=== PATIENT | male | born 1990 | race Asian ===

== ENCOUNTER 2017-12-30 09:24 | Emergency (ER) | payer OTHER ==
--- NOTE | 2017-12-30 11:06 | XRAY Report ---
EXAM: LEFT SECOND DIGIT RADIOGRAPHY EXAM DATE: 12/30/2017 10:40 AM. CLINICAL HISTORY: Staple thru index finger. COMPARISON: None. TECHNIQUE: 3 views. FINDINGS: Bones: No acute fracture is identified. No bony lesion. Joints: Normal. No subluxations. Soft Tissues: U shaped metallic structure consistent with a staple is seen with the proximal aspect e xtending through the radial portion of the left second distal phalanx within the soft tissues with th e distal portion which appears to extend through or along the margins of the tuft of the left second distal phalanx. IMPRESSION: 1. No acute fractures identified. 2. U-shaped radiopaque foreign body as described of which the distal portion may extend through or al aubrey the margins of the tuft of the left second distal phalanx. [facility] Referring Provider Line: [phone] SITE ID: [id number]
--- NOTE | 2017-12-30 11:55 | ED Physician Documentation ---
PD HPI UPPER EXT INJURY - Stated complaint Stated Complaint: L FINGER STAPLED - Chief complaint Chief Complaint: Ext Problem - History obtained from History obtained from: Patient - History of Present Illness Location: Left, Finger (index) Type of injury: Foreign body (got staple into finger (from swung staple hammer - so construction type staple, not paper staple).) Where injury occurred: Work Timing - onset: How many hours ago (1), Today Timing - details: Abrupt onset, Still present Worsened by: Palpating Associated symptoms: No: Weakness, Numbness Similar symptoms before: Has not had sx before Recently seen: Not recently seen Review of Systems Neurologic: denies: Focal weakness, Numbness, Near syncope PD PAST MEDICAL HISTORY - Past Medical History Past Medical History: Yes Neuro: None GI: GERD - Past Surgical History Past Surgical History: Yes HEENT: Other - Present Medications Home Medications: Ambulatory Orders Medication Instructions Recorded Confirmed No Known Home Medications [No 12/30/17 12/30/17 Known Home Medications] Omeprazole [PriLOSEC] 0 12/30/17 - Allergies Allergies/Adverse Reactions: Allergies Allergy/AdvReac Type Severity Reaction Status Date / Time No Known Drug Allergies Allergy Verified 12/30/17 09:36 - Social History Does the pt smoke?: No Smoking Status: Never smoker Does the pt drink ETOH?: Yes Does the pt have substance abuse?: No - Immunizations Immunizations are current?: Yes PD ED PE NORMAL - Vitals Vital signs reviewed: Yes - General General: Alert and oriented X 3, No acute distress, Well developed/nourished - Derm Derm: Normal color, Warm and dry - Extremities Extremities: Other (left index finger with construction staple in finger dorsally at nail and just proximal to nail (the 2 legs of the taple). Does not distort palmar side. ) - Neuro Neuro: No motor deficit, No sensory deficit Results - Vitals Vitals: Oxygen O2 Source Room air - Rads (name of study) finger xray Radiology: Prelim report reviewed, EMP read contemporaneously (staple FB noted. no fracture. ) Procedures - FB removal FB location: Subcutaneous (into finger tip through nail) FB removal preparation: Local anesthesia-specify (lido 1% digital block.) Removal method: Foreceps (took a little bit of pull to get it out. Might have been into bone a little or just the friction of coming through the nail.) FB removal aftercare: No complications, Patient tolerated well, Removed successfully PD MEDICAL DECISION MAKING - ED course Complexity details: considered differential, d/w patient Departure - Departure Disposition: 01 Home, Self Care Clinical Impression: Foreign body finger Condition: Stable Record reviewed to determine appropriate education?: Yes Instructions: ED Foreign Body Soft Tissue Removed Follow-Up: DEONTE Day [Provider Group] Comments: Wash the area 2-3 times a day for the next couple of days. Keep it covered with a Band-Aid. Recheck if signs of infection otherwise normal use. Tylenol or ibuprofen if needed for pains. Discharge Date/Time: 12/30/17 12:27
[2017-12-30 12:12] VITALS: BP 140/92
== END 2017-12-30 12:27 | disposition home or self-care (01) ==
LOC: ED 09:24
DX: S60.451A Superficial foreign body of left index finger, initial encounter (principal); W29.8XXA Contact with other powered hand tools and household machinery, initial encounter; Y99.0 Civilian activity done for income or pay
CPT/HCPCS: 10120; 73140; 99282; 99283

== ENCOUNTER 2018-03-12 19:56 | Emergency (ER) | payer OTHER ==
--- NOTE | 2018-03-12 20:36 | ED Physician Documentation ---
PD HPI UPPER EXT INJURY - Stated complaint Stated Complaint: SHOULDER PAIN - Chief complaint Chief Complaint: Ext Problem - History obtained from History obtained from: Patient - History of Present Illness Location: Right, Shoulder Type of injury: Blunt / blow Timing - onset: Enter time (19:00), Today Timing - details: Abrupt onset Improved by: Rest Worsened by: Moving Associated symptoms: No: Weakness, Numbness, Tingling, Swelling Similar symptoms before: Has not had sx before Recently seen: Not recently seen - Additonal information Additional information: playing soccer tonight, approximately 7 PM collided with another player, c/o right shoulder pain. denies other injury Review of Systems Musculoskeletal: reports: Joint pain (right shoulder). denies: Neck pain, Back pain Neurologic: denies: Focal weakness, Numbness, Head injury PD PAST MEDICAL HISTORY - Past Medical History Neuro: Migraines - Present Medications Home Medications: Ambulatory Orders Medication Instructions Recorded Confirmed Cyclobenzaprine [Flexeril] 10 mg PO PRN PRN 03/12/18 Hydrocodone/Acetaminophen 1 - 2 each PO Q6HR PRN #14 tablet 03/12/18 [Hydrocodon-Acetaminophen 5-325] SUMAtriptan succinate [Sumatriptan 50 mg PO DAILY 03/12/18 Succinate] - Allergies Allergies/Adverse Reactions: Allergies Allergy/AdvReac Type Severity Reaction Status Date / Time No Known Drug Allergies Allergy Verified 03/12/18 19:59 - Social History Does the pt smoke?: No Smoking Status: Never smoker Does the pt drink ETOH?: Yes Does the pt have substance abuse?: No - Immunizations Immunizations are current?: Yes PD ED PE NORMAL - Vitals Vital signs reviewed: Yes - General General: Alert and oriented X 3, Well developed/nourished, Other (appears to be in episodic painful discomfort ) - Derm Derm: Normal color - Extremities Extremities: No edema - Neuro Neuro: No motor deficit, No sensory deficit PD ED PE EXPANDED - Extremities Extremities: Tenderness (anterolateral right shoulder), Limited ROM (right shoulder (abduction limited to approximately 30-40 degrees due to pain)). No: Deformity, Swelling, Bruising Results - Vitals Vitals: Vital Signs - 24 hr 03/12/18 03/12/18 19:57 23:02 Temperature 36.7 C Heart Rate 110 H 76 Respiratory 18 15 Rate Blood Pressure 127/86 H 122/71 O2 Saturation 96 98 Oxygen O2 Source Room air - Rads (name of study) right shoulder xrays Radiology: Prelim report reviewed, See rad report PD MEDICAL DECISION MAKING - ED course Complexity details: reviewed results, re-evaluated patient, considered differential, d/w patient Departure - Departure Disposition: 01 Home, Self Care Clinical Impression: Shoulder sprain Qualifiers: Encounter type: initial encounter Shoulder sprain type: unspecified sprain Laterality: right Qualified Code(s): S43.401A - Unspecified sprain of right shoulder joint, initial encounter Condition: Good Instructions: ED Sprain Shoulder, ED Sling Follow-Up: DEONTE Day [Provider Group] Prescriptions: Hydrocodone/Acetaminophen [Hydrocodon-Acetaminophen 5-325] 1 - 2 each PO Q6HR PRN #14 tablet PRN Reason: Pain Forms: Activity restrictions Discharge Date/Time: 03/12/18 23:06
[2018-03-12] MEDS ORDERED: KETOROLAC 60 MG/2 ML VIAL IVP STA (20:51)
[2018-03-12] MEDS ORDERED: HYDROcod/ACET 5/325 Prepack 4 PO STA (20:51)
--- NOTE | 2018-03-12 21:06 | XRAY Preliminary Report ---
Exam: XR SHOULDER 2 VIEW RT IMPRESSION: Possible posterior subluxation of the humeral head at the glenoid, though not definitive. Recommend attempt at obtaining axillary and Grashey views for further evaluation. ERLIN The above findings were discussed with Dr. Whalen by Dr. Og May at 21:03 hrs on 03/12/18. SITE ID: [id number]
--- NOTE | 2018-03-12 21:12 | XRAY Report ---
EXAM: RIGHT SHOULDER RADIOGRAPHY EXAM DATE: 03/12/2018 08:20 PM. CLINICAL HISTORY: Shoulder injury. Possible dislocation. COMPARISON: None. TECHNIQUE: 2 views. FINDINGS: Bones: No displaced fracture. No suspicious focal osseous lesion. Joints: The acromioclavicular joint is unremarkable. Possible posterior subluxation of the humeral he ad at the glenoid. Soft tissues: The visualized hemithorax is unremarkable. IMPRESSION: Possible posterior subluxation of the humeral head at the glenoid, though not definitive. Recommend attempt at obtaining axillary and Grashey views for further evaluation. [facility] The above findings were discussed with Dr. Whalen by Dr. Og aMy at 21:03 hrs on 03/12/18. Referring Provider Line: [phone] SITE ID: [id number]
--- NOTE | 2018-03-12 22:15 | XRAY Preliminary Report ---
Exam: XR SHOULDER 2 VIEW RT IMPRESSION: No acute osseous abnormality, specifically no shoulder dislocation. [facility] SITE ID: [id number]
--- NOTE | 2018-03-12 22:33 | XRAY Report ---
EXAM: RIGHT SHOULDER RADIOGRAPHY EXAM DATE: 03/12/2018 09:49 PM. CLINICAL HISTORY: Injury. COMPARISON: Prior same-day shoulder radiographs. TECHNIQUE: Axillary and Grashey views. FINDINGS: Grashey view is suboptimal. Bones: No fracture or bone lesion. Joints: No subluxation/dislocation. No significant degenerative change at the glenohumeral or acromio clavicular joint. Soft tissues: The visualized hemithorax is unremarkable. IMPRESSION: No acute osseous abnormality, specifically no shoulder dislocation. [facility] Referring Provider Line: [phone] SITE ID: [id number]
[2018-03-12] MEDS ORDERED: diazePAM INJ 5 MG/ML SYRINGE IVP STA (22:37)
[2018-03-12 23:02] VITALS: BP 122/71
== END 2018-03-12 23:06 | disposition home or self-care (01) ==
LOC: MERGE 19:56 → ED 19:56
DX: S43.401A Unspecified sprain of right shoulder joint, initial encounter (principal); W51.XXXA Accidental striking against or bumped into by another person, initial encounter; Y93.66 Activity, soccer
CPT/HCPCS: 96374; 96375; 99283

== ENCOUNTER 2018-03-25 13:09 | Outpatient (CLI) | payer OTHER ==
--- NOTE | 2018-03-26 12:05 | MRI Preliminary Report ---
Exam: MRI BRAIN W/O Impressions: 1. Negative study as detailed. Minimal bilateral maxillary sinus mucosal thickening. [facility] SITE ID: [id number]
--- NOTE | 2018-03-26 12:06 | MRI Report ---
EXAM: MRI BRAIN WITHOUT CONTRAST EXAM DATE: 03/25/2018 01:53 PM. CLINICAL HISTORY: Migraine. COMPARISON: None. TECHNIQUE: Multiplanar, multisequence T1-weighted and fluid-sensitive MR sequences of the brain were performed. Sequences optimized for routine evaluation. Other: None. IV Contrast: None. Findings: Relevant images are indicated (image number, series number). There is no acute or subacute ischemic change in the brain. There is no hemosiderin deposition in the brain. There is no hemorrhage, mass or midline shift. Basal cisterns, bilateral AICAs, bilateral Mec mario alberto's caves are clear. Orbital contents negative. Minimal bilateral maxillary sinus callosal thickeni ng. Normal expected vascular flow voids of the major arteries and draining veins. No cortical atrophy . Ventricles are not dilated. Limited evaluation suprahyoid neck is unremarkable. Good gonzalez-white matter differentiation, normal sulcal gyral pattern of the brain without evidence of congenital malformation. Pituitary, infundibulum, mid brain, craniocervical junction, limited evaluation upper cervical cord n egative. Extraocular muscles, optic nerves, orbital apex, optic chiasm negative. Impressions: 1. Negative study as detailed. Minimal bilateral maxillary sinus mucosal thickening. [facility] Referring Provider Line: [phone] SITE ID: [id number]
== END 2018-03-25 13:10 | disposition home or self-care (01) ==
LOC: DI 13:09
PROVIDERS: ATTEND Family Medicine
DX: G43.909 Migraine, unspecified, not intractable, without status migrainosus (principal)
CPT/HCPCS: 70551